=== PATIENT | male | born 1940 | race Caucasian/White ===

== ENCOUNTER 2017-12-05 10:02 | Inpatient (IN) | payer OTHER ==
[~2017-12-05] VITALS: Ht 160 cm; Wt 70.7 kg
[~2017-12-05 10:02] MED LIST: ACETAMINOPHEN650 M6 PO; ASPIRIN E.C.81 M1 PO; CELEBREX200 MG PO; Cardizem CD,Cartia X PO; Ecotrin PO; Feosol PO; GLUCOPHAGE1000 MG PO; Glucophage PO; HUMULIN N300 UNIT/3 SC; HUMULIN NP100 UNIT/1 SC; Hytrin PO; MEVACOR40 MG PO; Procardia XL,Adalat PO; ULTRAM50 MG PO; Vicodin,Norco 5/325 PO; Zestoretic,Prinzide PO; Zestril,Prinivil PO
[2017-12-05 11:20] LABS: APPEARANCE CLOUDY ((CLEAR)); BILIRUBIN NEGATIVE; BLOOD SMALL; COLOR YELLOW ((YELLOW)); GLUCOSE (STRIP) NEGATIVE; KETONES NEGATIVE; LEUKOCYTES LARGE; NITRITE NEGATIVE; PROTEIN (STRIP) 30; SPECIFIC GRAVITY 1.011 (1.000-1.030); UROBILINOGEN 0.2 MG/DL (0.2-1.0)
[2017-12-05 11:23] LABS: BASOPHIL (%) 0.2 % (0-1); EOSINOPHIL (%) 0.1 % (0-5); HEMOGLOBIN 12.2 G/DL (12.5-16.6); IMMATURE GRANULOCYTE (%) 0.4 % (0.0-0.7); LYMPHOCYTE (%) 9.3 % (15-42); LYMPHOCYTE COUNT 1.2 K/uL (1.0-2.8); MCH 29.3 PG (29.0-34.0); MCHC 33.9 G/DL (30.0-36.0); MCV 86.5 FL (86-99); MONOCYTE (%) 6.4 % (3-12); MONOCYTE COUNT 0.8 K/uL (0-0.8); NEUTROPHIL (%) 83.6 % (45-76); NEUTROPHIL COUNT 10.6 K/uL (1.8-6.4); PLATELET COUNT 263 K/uL (156-360); RBC DIS.WIDTH-CV 13.1 % (11.8-14.6); RBC DIS.WIDTH-SD 41.1 % (39-53); RED BLOOD COUNT 4.16 M/uL (4.00-5.50); WHITE BLOOD COUNT 12.7 K/uL (4.1-10.2)
[2017-12-05 11:31] LABS: PTT 29.2 SEC (25-37)
[2017-12-05 11:32] LABS: AMYLASE 73 IU/L (1-118); CHLORIDE 106 mEq/L (99-109); SODIUM 140 mEq/L (136-147)
[2017-12-05 11:33] LABS: GLUCOSE 169 mg/dL (70-99)
[2017-12-05 11:37] LABS: CREATININE 1.3 mg/dL (0.6-1.3); GFR ESTIMATE (CALCULATED) 57 mL/min/ (58.99-99999); SERUM ETHYL ALCOHOL < 10 mg/dL
[2017-12-05 11:38] LABS: UREA NITROGEN (BUN) 26 mg/dL (9-23)
[2017-12-05 11:39] LABS: BACTERIA 1+ /HPF; EPITHELIAL CELLS RARE /HPF; MUCUS NONE SEEN /LPF; RED BLOOD CELLS RARE /HPF (0-5); UCUL ADDED? YES; WHITE BLOOD CELLS TNTC /HPF (0-5)
[2017-12-05 11:40] LABS: AMPHETAMINE NEGATIVE (500 ng/mL); BARBITURATES NEGATIVE (200 ng/mL); BENZODIAZEPINES NEGATIVE (150 ng/mL); BUPRENORPHINE NEGATIVE (10 ng/mL); COCAINE NEGATIVE (150 ng/mL); METHADONE NEGATIVE (200 ng/mL); METHAMPHETAMINE NEGATIVE (500 ng/mL); OPIATES (MORPHINE) NEGATIVE (100 ng/mL); OXYCODONE NEGATIVE (100 ng/mL); PHENCYCLIDINE NEGATIVE (25 ng/mL); PROPOXYPHENE NEGATIVE (300 ng/mL); THC CANNABINOIDS NEGATIVE (50 ng/mL); TRICYCLIC ANTIDEPRESSANTS NEGATIVE (300 ng/mL)
[2017-12-05 11:40] LABS: LIPASE 26 U/L (1.0-51.0)
[2017-12-05 11:43] LABS: TROP-I INTERPRETATION NEGATIVE; TROPONIN-I < 0.01 ng/mL (0.0-0.30)
[2017-12-05] MEDS ORDERED: HUMULIN N100 UNITS/ SC (12:44)
[2017-12-05] MEDS ORDERED: NOVOLOG 10100 UNITS/ SC (12:50)
[2017-12-05] MEDS ORDERED: METFORMIN HCL1000 MG PO (12:50)
[2017-12-05 14:51] VITALS: BP 118/83
[2017-12-05 20:16] VITALS: BP 131/64
[2017-12-05 23:54] VITALS: BP 150/68
[2017-12-06] VITALS (7 sets, daily range): BP systolic 132–186; BP diastolic 68–90
[2017-12-06 05:51] LABS: HEMATOCRIT 34.4 % (38.0-50.0); HEMOGLOBIN 11.2 G/DL (12.5-16.6); MCH 28.6 PG (29.0-34.0); MCHC 32.6 G/DL (30.0-36.0); PLATELET COUNT 247 K/uL (156-360); RBC DIS.WIDTH-CV 13.2 % (11.8-14.6); RBC DIS.WIDTH-SD 42.4 % (39-53); RED BLOOD COUNT 3.91 M/uL (4.00-5.50); WHITE BLOOD COUNT 6.4 K/uL (4.1-10.2)
[2017-12-06 06:16] LABS: CHLORIDE 110 MEQ/L (99-109); CREATININE 1.2 MG/DL (0.6-1.3); GFR ESTIMATE (CALCULATED) > 59 mL/min/ (58.99-99999); POTASSIUM 5.3 MEQ/L (3.7-5.4); SODIUM 143 MEQ/L (136-147); UREA NITROGEN (BUN) 22 mg/dL (9-23)
[2017-12-06 06:23] LABS: GLUCOSE 107 mg/dL (70-99)
[2017-12-07 04:41] VITALS: BP 173/74
[2017-12-07 07:30] VITALS: BP 161/76
[2017-12-07 12:00] VITALS: BP 132/70
[2017-12-07] MEDS ORDERED: METOPROLOL SUC100 MG PO (14:08)
[2017-12-07] MEDS ORDERED: LEVOFLOXACIN500 MG PO (14:08)
[2017-12-07] MEDS ORDERED: ATORVASTATIN CA40 MG PO (14:11)
== END 2017-12-07 16:34 | disposition home or self-care (01) | DRG 690 ==
LOC: EME 10:02 → EDOF 12:50 → 5SOUTH 12:50 → ENRESERV 13:06 → 5SOUTH 13:54
PROVIDERS: Family Medicine Sports Medicine; Nurse Practitioner Family
DX: N39.0 Urinary tract infection, site not specified (principal); F03.90 Unspecified dementia, unspecified severity, without behavioral disturbance, psychotic disturbance, mood disturbance, and anxiety; I10 Essential (primary) hypertension; E11.649 Type 2 diabetes mellitus with hypoglycemia without coma; E78.5 Hyperlipidemia, unspecified; M19.90 Unspecified osteoarthritis, unspecified site; K21.9 Gastro-esophageal reflux disease without esophagitis; F41.9 Anxiety disorder, unspecified; Z79.4 Long term (current) use of insulin; I25.10 Atherosclerotic heart disease of native coronary artery without angina pectoris
CPT/HCPCS: 70450; 71045; 80048; 81003; 82150; 82948; 83690; 84484; 85025; 85027; 85610; 85730; 86850; 86900; 86901; 87040; 87077; 87086 GA; 87147; 87186; 92526 GN; 93005; 99281; 99285; G0480; J0696; J1650; J1815; J7030

== ENCOUNTER 2017-12-16 07:10 | Emergency (ER) | payer OTHER ==
[~2017-12-16] VITALS: Ht 165.1 cm; Wt 68.2 kg
[~2017-12-16 07:10] MED LIST changes: +ATORVASTATIN CA40 MG PO; +HUMULIN N100 UNITS/ SC; +LEVOFLOXACIN500 MG PO; +METFORMIN HCL1000 MG PO; +METOPROLOL SUC100 MG PO; +NOVOLOG 10100 UNITS/ SC
[2017-12-16 07:59] LABS: BASOPHIL (%) 0.5 % (0-1); EOSINOPHIL COUNT 0.2 K/uL (0-0.3); HEMATOCRIT 36.9 % (38.0-50.0); HEMOGLOBIN 12.3 G/DL (12.5-16.6); IMMATURE GRANULOCYTE (%) 0.3 % (0.0-0.7); LYMPHOCYTE (%) 17.8 % (15-42); LYMPHOCYTE COUNT 1.6 K/uL (1.0-2.8); MCH 29.3 PG (29.0-34.0); MCHC 33.3 G/DL (30.0-36.0); MCV 87.9 FL (86-99); MONOCYTE (%) 7.5 % (3-12); MONOCYTE COUNT 0.7 K/uL (0-0.8); NEUTROPHIL (%) 71.9 % (45-76); NEUTROPHIL COUNT 6.3 K/uL (1.8-6.4); PLATELET COUNT 276 K/uL (156-360); RBC DIS.WIDTH-CV 12.8 % (11.8-14.6); RBC DIS.WIDTH-SD 41.4 % (39-53); WHITE BLOOD COUNT 8.7 K/uL (4.1-10.2)
[2017-12-16 08:36] LABS: CHLORIDE 108 MEQ/L (99-109); CREATININE 1.2 MG/DL (0.6-1.3); GFR ESTIMATE (CALCULATED) > 59 mL/min/ (58.99-99999); GLUCOSE 61 mg/dL (70-99); SODIUM 142 MEQ/L (136-147); UREA NITROGEN (BUN) 26 mg/dL (9-23)
[2017-12-16 09:40] LABS: APPEARANCE CLEAR ((CLEAR)); BILIRUBIN NEGATIVE; BLOOD NEGATIVE; COLOR YELLOW ((YELLOW)); GLUCOSE (STRIP) NEGATIVE; KETONES NEGATIVE; LEUKOCYTES NEGATIVE; NITRITE NEGATIVE; PROTEIN (STRIP) NEGATIVE; SPECIFIC GRAVITY 1.012 (1.000-1.030); UROBILINOGEN 0.2 MG/DL (0.2-1.0)
[2017-12-16] MEDS ORDERED: CONTOUR1 EACH MISC (13:22)
[2017-12-16] MEDS ORDERED: ACCU CHEK AVIV MC (13:29)
[2017-12-16 13:43] VITALS: BP 109/97
== END 2017-12-16 13:45 | disposition home or self-care (01) ==
LOC: EME 07:10
PROVIDERS: Emergency Medicine
DX: E11.649 Type 2 diabetes mellitus with hypoglycemia without coma (principal); I10 Essential (primary) hypertension; Z79.4 Long term (current) use of insulin; Z87.891 Personal history of nicotine dependence
CPT/HCPCS: 80048; 81003; 82948; 85025; 99281; 99285